=== PATIENT | male | born 1970 | race Caucasian/White ===

== ENCOUNTER 2020-05-28 16:38 | Emergency (ER) | payer MEDICAID, OTHER ==
[~2020-05-28] VITALS: Ht 180.3 cm; Wt 109.8 kg
[2020-05-28 17:17] VITALS: BP 142/83
== END 2020-05-28 17:22 | disposition left against medical advice (07) ==
LOC: ER 16:38
DX: Z48.00 Encounter for change or removal of nonsurgical wound dressing (principal); Z53.21 Procedure and treatment not carried out due to patient leaving prior to being seen by health care provider

== ENCOUNTER 2023-04-15 13:25 | Inpatient (IN) | payer MEDICAID ==
[~2023-04-15] VITALS: Ht 180.3 cm; Wt 104.7 kg
[2023-04-15 16:13] LABS: Basophils # (auto) 0.1 10 ^3/uL (0-0.2); Basophils % (auto) 0.8 % (0.0-2.0); Eosinophils # (auto) 0.2 10 ^3/uL (0-0.8); Eosinophils % (auto) 3.2 % (0.0-7.0); Hematocrit 30.3 % (41.0-53.0); Hemoglobin 9.7 g/dL (13.5-17.5); Lymphocytes % (auto) 28.7 % (10.0-50.0); Mean Corpuscular Hemoglobin 24.6 pg (28.0-32.0); Mean Corpuscular Volume 76.9 fL (80.0-100.0); Monocytes # (auto) 0.5 10 ^3/uL (0-1.3); Monocytes % (auto) 7.5 % (0.0-12.0); Neutrophils # (auto) 4.2 10 ^3/uL (1.6-8.6); Neutrophils % (auto) 59.8 % (37.0-80.0); Red Blood Cells 3.94 10^6/uL (4.5-5.90)
[2023-04-15 16:14] LABS: Red Cell Distribution Width 20.1 % (11.8-14.3)
[2023-04-15 16:41] LABS: Albumin 2.6 g/dL (3.4-5.0); Calcium 8.4 mg/dL (8.5-10.1); Potassium 4.1 mmol/L (3.5-5.1)
[2023-04-15 16:44] LABS: BUN/Creatinine Ratio 20.2 (10.0-20.0); Bilirubin, Total 0.2 mg/dL (0.2-1.0); Total Protein 7.7 g/dL (6.4-8.2)
[2023-04-15] MEDS ORDERED: MORPHINE SULFATE 4 MG/ML SYR/VIAL IV ONE (16:45)
[2023-04-15] MEDS ORDERED: VANCOMYCIN PER PHARMACY 0 MG IV SCH (16:45)
[2023-04-15] MEDS ORDERED: oxyCODONE ER 20 MG TAB PO ONE (17:00)
[2023-04-15] MEDS ORDERED: VANCOMYCIN 1GM/250ML 250 ML IV ONE ×2 (17:00)
[2023-04-15] MEDS: ONDANSETRON HCL 4 MG/2 ML VIAL IV ONE ×2 (17:09→17:16)
[2023-04-15] MEDS ORDERED: ACETAMINOPHEN 325 MG TAB PO PRN (20:45)
[2023-04-15] MEDS ORDERED: ONDANSETRON HCL 4 MG/2 ML VIAL IV PRN (20:45)
[2023-04-15] MEDS ORDERED: ATOR20TA50 PO (20:50)
[2023-04-15] MEDS ORDERED: OXYC20TA72 PO (20:50)
[2023-04-15] MEDS ORDERED: QUET1TAB11 PO (20:50)
[2023-04-15] MEDS ORDERED: FENO160T PO (20:50)
[2023-04-15] MEDS ORDERED: PREG200C59 PO (20:50)
[2023-04-15] MEDS ORDERED: DEXTROSE (50%) 50ML SYRG IV PRN (21:00)
[2023-04-15] MEDS ORDERED: PREGABALIN 200 MG PO SCH (22:00)
[2023-04-15] MEDS: ACCU-CHEK COMFORT CURVE STRIP VI SCH (22:00)
[2023-04-15] MEDS: PIPERACILLIN-TAZOB 3.375GM 100 ML IV SCH (22:37)
[2023-04-15] MEDS: SODIUM CHLORIDE 0.9% 1,000 ML IV SCH (22:37)
[2023-04-15] MEDS: PREGABALIN CAPSULE 75 MG CAP PO SCH (22:38)
[2023-04-15] MEDS: PREGABALIN 25 MG CAP PO SCH (22:39)
[2023-04-15] MEDS: oxyCODONE ER 20 MG TAB PO SCH (22:39)
[2023-04-15] MEDS: InsuLIN REG 1unit/0.01ml Soln (100units/ml) SC SCH (22:40)
[2023-04-16] MEDS: VANCOMYCIN 1GM/250ML 250 ML IV SCH ×2 (05:08→17:00)
[2023-04-16] MEDS: PIPERACILLIN-TAZOB 3.375GM 100 ML IV SCH ×3 (06:00→22:00)
[2023-04-16] MEDS: PREGABALIN CAPSULE 75 MG CAP PO SCH ×3 (06:34→22:00)
[2023-04-16] MEDS: oxyCODONE ER 20 MG TAB PO SCH ×4 (06:34→22:01)
[2023-04-16] MEDS: PREGABALIN 25 MG CAP PO SCH ×3 (06:34→22:00)
[2023-04-16] MEDS: InsuLIN REG 1unit/0.01ml Soln (100units/ml) SC SCH ×4 (06:36→22:17)
[2023-04-16] MEDS: ACCU-CHEK COMFORT CURVE STRIP VI SCH ×4 (07:00→22:14)
[2023-04-16 07:40] LABS: Basophils # (auto) 0.1 10 ^3/uL (0-0.2); Eosinophils # (auto) 0.4 10 ^3/uL (0-0.8); Hemoglobin 9.8 g/dL (13.5-17.5); Monocytes # (auto) 0.7 10 ^3/uL (0-1.3); Red Cell Distribution Width 19.8 % (11.8-14.3)
[2023-04-16 07:43] LABS: Basophils % (auto) 0.8 % (0.0-2.0); Eosinophils % (auto) 4.6 % (0.0-7.0); Hematocrit 29.9 % (41.0-53.0); Lymphocytes # (auto) 2.3 10 ^3/uL (0.4-5.4); Lymphocytes % (auto) 25.4 % (10.0-50.0); Mean Corpuscular Hemoglobin 25.3 pg (28.0-32.0); Mean Corpuscular Hgb Conc. 32.6 g/dL (32.0-36.0); Mean Corpuscular Volume 77.5 fL (80.0-100.0); Monocytes % (auto) 7.9 % (0.0-12.0); Neutrophils # (auto) 5.7 10 ^3/uL (1.6-8.6); Neutrophils % (auto) 61.3 % (37.0-80.0); Nucleated Red Blood Cells % 0.1 %; Red Blood Cells 3.87 10^6/uL (4.5-5.90); White Blood Cell 9.2 10^3/uL (4.4-10.8)
[2023-04-16 07:51] LABS: Potassium 4.2 mmol/L (3.5-5.1)
[2023-04-16 08:04] LABS: BUN/Creatinine Ratio 19.7 (10.0-20.0); Bilirubin, Total 0.5 mg/dL (0.2-1.0); Calcium 8.7 mg/dL (8.5-10.1); INR 1.06 (0.9-1.15); Total Protein 8.1 g/dL (6.4-8.2)
[2023-04-16] MEDS: ATORVASTATIN 20 MG TAB PO SCH (10:00)
[2023-04-16] MEDS: Fenofibrate 160MG TAB PO SCH (10:00)
[2023-04-16] MEDS: QUEtiapine FUMARATE 25 MG TAB PO SCH (10:00)
[2023-04-16] MEDS: SODIUM CHLORIDE 0.9% 1,000 ML IV SCH (13:25)
[2023-04-16] MEDS ORDERED: ONDANSETRON HCL 4 MG/2 ML VIAL IV PRN (14:15)
[2023-04-16] MEDS: MORPHINE SULFATE INJ 2 MG/ml SYRG IV PRN ×2 (14:43→23:26)
[2023-04-16 17:00] VITALS: BP 123/70
[2023-04-16 17:50] VITALS: BP 123/70
[2023-04-16 20:00] VITALS: BP 125/78
[2023-04-16 22:00] VITALS: BP 128/81
[2023-04-17] MEDS: MORPHINE SULFATE INJ 2 MG/ml SYRG IV PRN ×3 (04:19→20:31)
[2023-04-17] MEDS: VANCOMYCIN 1GM/250ML 250 ML IV SCH ×2 (05:23→17:43)
[2023-04-17] MEDS: SODIUM CHLORIDE 0.9% 1,000 ML IV SCH ×2 (06:05→22:45)
[2023-04-17] MEDS: PREGABALIN 25 MG CAP PO SCH ×3 (06:19→21:23)
[2023-04-17] MEDS: PREGABALIN CAPSULE 75 MG CAP PO SCH ×3 (06:19→21:23)
[2023-04-17] MEDS: ACCU-CHEK COMFORT CURVE STRIP VI SCH ×4 (06:21→21:27)
[2023-04-17] MEDS: InsuLIN REG 1unit/0.01ml Soln (100units/ml) SC SCH ×4 (06:24→22:38)
[2023-04-17] MEDS: oxyCODONE ER 20 MG TAB PO SCH ×4 (06:27→21:24)
[2023-04-17 08:00] VITALS: BP_SYST 121; BP_SYST 125; BP_DIAS 67; BP_DIAS 78
[2023-04-17] MEDS: Fenofibrate 160MG TAB PO SCH (10:00)
[2023-04-17] MEDS: PIPERACILLIN-TAZOB 3.375GM 100 ML IV SCH ×3 (11:11→21:25)
[2023-04-17] MEDS: ATORVASTATIN 20 MG TAB PO SCH (11:12)
[2023-04-17] MEDS: QUEtiapine FUMARATE 25 MG TAB PO SCH (11:12)
[2023-04-17 12:00] VITALS: BP 122/60
[2023-04-17 16:00] VITALS: BP 103/68
[2023-04-17 20:00] VITALS: BP 125/78
[2023-04-17 22:00] VITALS: BP 130/83
[2023-04-18] VITALS (17 sets, daily range): BP systolic 110–154; BP diastolic 65–94
[2023-04-18] MEDS: MORPHINE SULFATE 4 MG/ML SYR/VIAL IV PRN ×3 (03:28→19:57)
[2023-04-18] MEDS: PREGABALIN 25 MG CAP PO SCH ×3 (05:43→22:15)
[2023-04-18] MEDS: VANCOMYCIN 1GM/250ML 250 ML IV SCH ×2 (05:43→17:46)
[2023-04-18] MEDS: oxyCODONE ER 20 MG TAB PO SCH ×4 (05:44→22:16)
[2023-04-18] MEDS: PREGABALIN CAPSULE 75 MG CAP PO SCH ×3 (05:44→22:15)
[2023-04-18] MEDS: PIPERACILLIN-TAZOB 3.375GM 100 ML IV SCH ×3 (06:00→22:16)
[2023-04-18] MEDS: ACCU-CHEK COMFORT CURVE STRIP VI SCH ×4 (06:34→22:27)
[2023-04-18] MEDS: InsuLIN REG 1unit/0.01ml Soln (100units/ml) SC SCH ×4 (06:34→22:29)
[2023-04-18] MEDS: POVIDONE IODINE 10 % TOPICAL OINT 30GM TOP ONE ×2 (06:45→09:32)
[2023-04-18] MEDS ORDERED: ceFAZolin 1GM/50ML 100 ML IV ONE (07:11)
[2023-04-18] MEDS ORDERED: TETRACAINE 1% INJ 2 ML VIAL IJ ONE (07:46)
[2023-04-18] MEDS ORDERED: fentaNYL CITRATE 100 MCG/2 ML VL ONE (07:52)
[2023-04-18] MEDS ORDERED: MIDAZOLAM HCL 2MG/2ML 2ml VIAL (1mg/ml) ONE ×2 (07:52→09:19)
[2023-04-18] MEDS ORDERED: PROPOFOL 10 MG/ML 20 ML IV ONE (07:54)
[2023-04-18] MEDS ORDERED: DexAMETHasone SOD PHOS 10MG/1ML VIAL INJ ONE (07:54)
[2023-04-18] MEDS ORDERED: PHENYLEPHRINE HCL 10 MG/ML VL IV ONE (07:55)
[2023-04-18] MEDS ORDERED: MORPHINE SULF PF 5 MG/10 ML VIAL ONE (07:57)
[2023-04-18] MEDS ORDERED: DexAMETHasone SOD PHOS 10MG/1ML VIAL INJ IV PRN (09:00)
[2023-04-18] MEDS ORDERED: ePHEDrine SULFATE 50 MG/ML AMP IV PRN (09:00)
[2023-04-18] MEDS ORDERED: HYDROmorphone HCL 2 MG/ML VL/or syr IV PRN (09:00)
[2023-04-18] MEDS ORDERED: LABETALOL HCL 5 MG/ML 4ML SYRINGE IV PRN (09:00)
[2023-04-18] MEDS ORDERED: MIDAZOLAM HCL 2MG/2ML 2ml VIAL (1mg/ml) IV PRN (09:00)
[2023-04-18] MEDS ORDERED: NALOXONE HCL 0.4 MG/ML VIAL IV PRN (09:00)
[2023-04-18] MEDS ORDERED: ONDANSETRON HCL 4 MG/2 ML VIAL IV PRN ×2 (09:00)
[2023-04-18] MEDS: Fenofibrate 160MG TAB PO SCH (10:00)
[2023-04-18] MEDS: QUEtiapine FUMARATE 25 MG TAB PO SCH ×2 (10:00→22:16)
[2023-04-18] MEDS: ATORVASTATIN 20 MG TAB PO SCH (10:00)
[2023-04-18] MEDS: SODIUM CHLORIDE 0.9% 1,000 ML IV SCH (15:08)
[2023-04-18 19:49] LABS: BUN/Creatinine Ratio 15.5 (10.0-20.0); Calcium 8.1 mg/dL (8.5-10.1); Potassium 4.9 mmol/L (3.5-5.1)
[2023-04-18] MEDS ORDERED: DEXTROSE (50%) 50ML SYRG IV PRN (20:45)
[2023-04-19] VITALS (11 sets, daily range): BP systolic 111–159; BP diastolic 51–87
[2023-04-19] MEDS: MORPHINE SULFATE 4 MG/ML SYR/VIAL IV PRN ×2 (00:13→04:07)
[2023-04-19] MEDS: PREGABALIN 25 MG CAP PO SCH ×3 (05:11→21:02)
[2023-04-19] MEDS: oxyCODONE ER 20 MG TAB PO SCH ×4 (05:11→23:00)
[2023-04-19] MEDS: PREGABALIN CAPSULE 75 MG CAP PO SCH ×3 (05:12→21:02)
[2023-04-19] MEDS: PIPERACILLIN-TAZOB 3.375GM 100 ML IV SCH (05:14)
[2023-04-19] MEDS: ACCU-CHEK COMFORT CURVE STRIP VI SCH ×4 (06:16→21:14)
[2023-04-19] MEDS: InsuLIN REG 1unit/0.01ml Soln (100units/ml) SC SCH ×4 (06:17→22:35)
[2023-04-19] MEDS: SODIUM CHLORIDE 0.9% 1,000 ML IV SCH (08:05)
[2023-04-19] MEDS: ATORVASTATIN 20 MG TAB PO SCH (08:57)
[2023-04-19] MEDS: Fenofibrate 160MG TAB PO SCH (08:58)
[2023-04-19] MEDS: MORPHINE SULFATE INJ 2 MG/ml SYRG IV PRN ×4 (08:58→21:06)
[2023-04-19] MEDS: VANCOMYCIN 1GM/250ML 250 ML IV SCH ×2 (09:16→17:20)
[2023-04-19] MEDS: DOCUSATE SOD 100 MG CAP PO PRN (21:18)
[2023-04-19] MEDS: INSULIN LANTUS (GLARGINE) 1 /0.01ml (100units/ml) SC SCH (22:37)
[2023-04-19] MEDS: QUEtiapine FUMARATE 25 MG TAB PO SCH (23:00)
[2023-04-20] MEDS: MORPHINE SULFATE INJ 2 MG/ml SYRG IV PRN ×6 (01:11→21:00)
[2023-04-20] MEDS: VANCOMYCIN 1GM/250ML 250 ML IV SCH ×2 (04:59→17:17)
[2023-04-20 06:00] VITALS: BP 113/65
[2023-04-20 06:02] LABS: Basophils # (auto) 0.1 10 ^3/uL (0-0.2); Basophils % (auto) 0.9 % (0.0-2.0); Eosinophils # (auto) 0.2 10 ^3/uL (0-0.8); Hemoglobin 9.4 g/dL (13.5-17.5); Red Blood Cells 3.72 10^6/uL (4.5-5.90)
[2023-04-20 06:04] LABS: Eosinophils % (auto) 2.5 % (0.0-7.0); Hematocrit 28.9 % (41.0-53.0); Lymphocytes # (auto) 2.5 10 ^3/uL (0.4-5.4); Lymphocytes % (auto) 38.4 % (10.0-50.0); Mean Corpuscular Hemoglobin 25.4 pg (28.0-32.0); Mean Corpuscular Hgb Conc. 32.6 g/dL (32.0-36.0); Mean Corpuscular Volume 77.8 fL (80.0-100.0); Monocytes # (auto) 0.6 10 ^3/uL (0-1.3); Monocytes % (auto) 9.7 % (0.0-12.0); Neutrophils # (auto) 3.2 10 ^3/uL (1.6-8.6); Neutrophils % (auto) 48.5 % (37.0-80.0); Nucleated Red Blood Cells % 0.1 %; Red Cell Distribution Width 19.8 % (11.8-14.3); White Blood Cell 6.6 10^3/uL (4.4-10.8)
[2023-04-20] MEDS: PREGABALIN CAPSULE 75 MG CAP PO SCH ×3 (06:06→21:22)
[2023-04-20] MEDS: PREGABALIN 25 MG CAP PO SCH ×3 (06:06→21:22)
[2023-04-20] MEDS: oxyCODONE ER 20 MG TAB PO SCH ×4 (06:07→21:22)
[2023-04-20 06:08] LABS: BUN/Creatinine Ratio 15.8 (10.0-20.0); Potassium 4.7 mmol/L (3.5-5.1)
[2023-04-20] MEDS: ACCU-CHEK COMFORT CURVE STRIP VI SCH ×4 (06:08→22:00)
[2023-04-20] MEDS: DOCUSATE SOD 100 MG CAP PO PRN (06:14)
[2023-04-20] MEDS: INSULIN LANTUS (GLARGINE) 1 /0.01ml (100units/ml) SC SCH ×2 (06:40→21:23)
[2023-04-20] MEDS: InsuLIN REG 1unit/0.01ml Soln (100units/ml) SC SCH ×4 (06:41→21:23)
[2023-04-20 09:00] VITALS: BP 148/70
[2023-04-20] MEDS: cefTRIAXone 1GM/50ML D5W 50 ML IV SCH (09:39)
[2023-04-20] MEDS: Fenofibrate 160MG TAB PO SCH (10:00)
[2023-04-20] MEDS: ATORVASTATIN 20 MG TAB PO SCH (10:38)
[2023-04-20 13:00] VITALS: BP 132/73
[2023-04-20 17:00] VITALS: BP 129/69
[2023-04-20] MEDS: QUEtiapine FUMARATE 25 MG TAB PO SCH (23:46)
[2023-04-21] MEDS: MORPHINE SULFATE INJ 2 MG/ml SYRG IV PRN ×6 (00:43→22:55)
[2023-04-21] MEDS: VANCOMYCIN 1GM/250ML 250 ML IV SCH ×2 (05:00→17:49)
[2023-04-21] MEDS: PREGABALIN 25 MG CAP PO SCH ×3 (06:21→22:02)
[2023-04-21] MEDS: PREGABALIN CAPSULE 75 MG CAP PO SCH ×3 (06:22→22:02)
[2023-04-21] MEDS: oxyCODONE ER 20 MG TAB PO SCH ×3 (06:22→19:06)
[2023-04-21] MEDS: InsuLIN REG 1unit/0.01ml Soln (100units/ml) SC SCH ×4 (06:26→22:04)
[2023-04-21] MEDS: INSULIN LANTUS (GLARGINE) 1 /0.01ml (100units/ml) SC SCH ×2 (06:27→22:03)
[2023-04-21] MEDS: ACCU-CHEK COMFORT CURVE STRIP VI SCH ×4 (06:42→22:02)
[2023-04-21 09:00] VITALS: BP 116/56
[2023-04-21] MEDS: ATORVASTATIN 20 MG TAB PO SCH (09:23)
[2023-04-21] MEDS: cefTRIAXone 1GM/50ML D5W 50 ML IV SCH (09:23)
[2023-04-21] MEDS: Fenofibrate 160MG TAB PO SCH (09:24)
[2023-04-21 13:00] VITALS: BP 120/66
[2023-04-21 15:17] VITALS: BP 120/66
[2023-04-21 17:00] VITALS: BP 113/65
[2023-04-21 22:00] VITALS: BP 141/68
[2023-04-21] MEDS: QUEtiapine FUMARATE 25 MG TAB PO SCH (22:02)
[2023-04-22] MEDS: oxyCODONE ER 20 MG TAB PO SCH ×3 (00:02→12:23)
[2023-04-22] MEDS: VANCOMYCIN 1GM/250ML 250 ML IV SCH (04:59)
[2023-04-22] MEDS: PREGABALIN CAPSULE 75 MG CAP PO SCH ×2 (05:50→14:00)
[2023-04-22] MEDS: PREGABALIN 25 MG CAP PO SCH ×2 (05:50→14:00)
[2023-04-22] MEDS: ACCU-CHEK COMFORT CURVE STRIP VI SCH ×2 (07:04→12:26)
[2023-04-22] MEDS: InsuLIN REG 1unit/0.01ml Soln (100units/ml) SC SCH ×2 (07:05→12:33)
[2023-04-22] MEDS: INSULIN LANTUS (GLARGINE) 1 /0.01ml (100units/ml) SC SCH (07:10)
[2023-04-22 09:00] VITALS: BP_SYST 108; BP_SYST 137; BP_DIAS 60; BP_DIAS 66
[2023-04-22] MEDS: cefTRIAXone 1GM/50ML D5W 50 ML IV SCH (09:33)
[2023-04-22] MEDS: ATORVASTATIN 20 MG TAB PO SCH (09:34)
[2023-04-22] MEDS: Fenofibrate 160MG TAB PO SCH (10:00)
[2023-04-22] MEDS: MORPHINE SULFATE INJ 2 MG/ml SYRG IV PRN (10:15)
[2023-04-22 10:45] VITALS: BP 108/60
== END 2023-04-22 15:20 | disposition home health service (06) | DRG 792 ==
LOC: ER 13:25 → EDBD 13:25 → OVERFLOW 20:50 → CENTRAL 04-16 18:00 → TELE-CENTR 04-18 09:24 → CENTRAL 04-19 15:51
PROVIDERS: ADMIT Nurse Practitioner Family; ATTEND Internal Medicine
PROC: 0Y6H0Z1 Detachment at Right Lower Leg, High, Open Approach (ICD-10-PCS; principal; 2023-04-18 07:59)
PROC: 02PYX3Z Removal of Infusion Device from Great Vessel, External Approach (ICD-10-PCS; 2023-04-22)
DX: T81.89XA Other complications of procedures, not elsewhere classified, initial encounter (principal); A52.16 Charcot's arthropathy (tabetic); M86.171 Other acute osteomyelitis, right ankle and foot; N17.9 Acute kidney failure, unspecified; E11.42 Type 2 diabetes mellitus with diabetic polyneuropathy; E11.610 Type 2 diabetes mellitus with diabetic neuropathic arthropathy; L97.429 Non-pressure chronic ulcer of left heel and midfoot with unspecified severity; M86.671 Other chronic osteomyelitis, right ankle and foot; E11.621 Type 2 diabetes mellitus with foot ulcer; E11.69 Type 2 diabetes mellitus with other specified complication; F32.A Depression, unspecified; I10 Essential (primary) hypertension; E11.65 Type 2 diabetes mellitus with hyperglycemia; Z91.199 Patient's noncompliance with other medical treatment and regimen due to unspecified reason; Z87.891 Personal history of nicotine dependence; Z83.3 Family history of diabetes mellitus; Z81.8 Family history of other mental and behavioral disorders; Z80.9 Family history of malignant neoplasm, unspecified; Z82.49 Family history of ischemic heart disease and other diseases of the circulatory system; Z79.4 Long term (current) use of insulin
CPT/HCPCS: 36415; 71045; 73700; 80048; 80053; 80202; 82962; 83036; 83605; 85025; 85610; 85652; 85730; 87040; 87081; 93971; 94760; 97163; G0378; J0690; J0696; J1100; J1815; J2250; J2405; J2543; J2704

== ENCOUNTER 2023-05-02 13:53 | Emergency (ER) | payer MEDICAID ==
[~2023-05-02] VITALS: Ht 180.3 cm; Wt 109.0 kg
[~2023-05-02 13:53] MED LIST: ATOR20TA50 PO; FENO160T PO; OXYC20TA72 PO; PREG200C59 PO; QUET1TAB11 PO
[2023-05-02 14:05] VITALS: BP 141/81
== END 2023-05-02 15:33 | disposition home or self-care (01) ==
LOC: ER 13:53
DX: S31.010D Laceration without foreign body of lower back and pelvis without penetration into retroperitoneum, subsequent encounter (principal); L08.9 Local infection of the skin and subcutaneous tissue, unspecified; E11.9 Type 2 diabetes mellitus without complications; I10 Essential (primary) hypertension; W18.39XD Other fall on same level, subsequent encounter
CPT/HCPCS: 12001; 82962

== ENCOUNTER 2023-09-18 10:40 | Emergency (ER) | payer MEDICAID ==
[~2023-09-18] VITALS: Ht 180.3 cm; Wt 104.0 kg
[2023-09-18 10:55] VITALS: BP 105/65; PULSE 90; RESP 18; TEMP 97.5; O2SAT 99
[2023-09-18] MEDS ORDERED: cefTRIAXone SOD 1,000 MG VL IM ONE (12:15)
[2023-09-18] MEDS ORDERED: HYDROcodone-ACET 10/325MG TAB PO ONE (12:15)
[2023-09-18] MEDS ORDERED: CEPH500C PO (12:15)
[2023-09-18] MEDS ORDERED: HYDROcodone-ACET 5/325MG TAB PO ONE (12:30)
== END 2023-09-18 12:30 | disposition home or self-care (01) ==
LOC: ER 10:40
DX: S80.01XA Contusion of right knee, initial encounter (principal); E11.9 Type 2 diabetes mellitus without complications; I10 Essential (primary) hypertension; Z48.00 Encounter for change or removal of nonsurgical wound dressing; X58.XXXA Exposure to other specified factors, initial encounter; Y93.89 Activity, other specified; Y92.89 Other specified places as the place of occurrence of the external cause; Y99.8 Other external cause status
CPT/HCPCS: 96372; 99283; J0696

== ENCOUNTER 2023-09-20 10:16 | Emergency (ER) | payer MEDICAID ==
[~2023-09-20] VITALS: Ht 180.3 cm; Wt 104.0 kg
[~2023-09-20 10:16] MED LIST changes: +CEPH500C PO
[2023-09-20 11:36] VITALS: BP 106/68; PULSE 76; RESP 18; TEMP 98.7; O2SAT 99
== END 2023-09-20 11:47 | disposition home or self-care (01) ==
LOC: ER 10:16
DX: E11.9 Type 2 diabetes mellitus without complications (principal); I10 Essential (primary) hypertension; Z48.00 Encounter for change or removal of nonsurgical wound dressing

== ENCOUNTER 2024-05-26 08:04 | Inpatient (IN) | payer MEDICAID ==
[~2024-05-26] VITALS: Ht 175.3 cm; Wt 121.7 kg
[~2024-05-26 08:04] MED LIST changes: +PREG200C36 PO; -PREG200C59 PO
[2024-05-26 09:30] LABS: Basophils # (auto) 0 10 ^3/uL (0-0.2); Basophils % (auto) 0.3 % (0.0-2.0); Eosinophils # (auto) 0.2 10 ^3/uL (0-0.8); Eosinophils % (auto) 1.8 % (0.0-7.0); Hematocrit 41.7 % (41.0-53.0); Hemoglobin 13.7 g/dL (13.5-17.5); Lymphocytes # (auto) 1.2 10 ^3/uL (0.4-5.4); Lymphocytes % (auto) 10.9 % (10.0-50.0); Mean Corpuscular Hemoglobin 30.5 pg (28.0-32.0); Mean Corpuscular Hgb Conc. 32.9 g/dL (32.0-36.0); Mean Corpuscular Volume 92.7 fL (80.0-100.0); Monocytes # (auto) 0.9 10 ^3/uL (0-1.3); Monocytes % (auto) 8.3 % (0.0-12.0); Neutrophils # (auto) 8.6 10 ^3/uL (1.6-8.6); Neutrophils % (auto) 78.7 % (37.0-80.0); Nucleated Red Blood Cells % 0.1 %; Red Blood Cells 4.49 10^6/uL (4.5-5.90); Red Cell Distribution Width 16.2 % (11.8-14.3); White Blood Cell 10.9 10^3/uL (4.4-10.8)
[2024-05-26 09:47] LABS: Alanine Aminotransferase 19 U/L (7-40); Albumin 4.1 g/dL (3.2-4.8); Alkaline Phosphatase 87 U/L (46-116); Anion Gap 9 (5-15); Aspartate Aminotransferase 9 U/L (13-40); BUN/Creatinine Ratio 15.7 (10.0-20.0); Blood Urea Nitrogen 20 mg/dL (9-23); Calcium 9.5 mg/dL (8.7-10.4); Carbon Dioxide 16 mmol/L (20-30); Chloride 110 mmol/L (98-107); Glucose 170 mg/dL (74-106); Potassium 5.1 mmol/L (3.5-5.1); Sodium 135 mmol/L (136-145)
[2024-05-26 09:48] LABS: Bilirubin, Total 0.3 mg/dL (0.2-1.0); Total Protein 7.3 g/dL (5.7-8.2)
[2024-05-26] MEDS: HYDROcodone-ACET 5/325MG TAB PO ONE (13:07)
[2024-05-26 14:20] VITALS: PULSE 85; RESP 17; O2SAT 94
[2024-05-26] MEDS: VANCOMYCIN 1GM/200ML 200 ML IV ONE (14:40)
[2024-05-26] MEDS ORDERED: DEXTROSE (50%) 50ML SYRG IV PRN (16:30)
[2024-05-26] MEDS ORDERED: HYDROcodone-ACET 5/325MG TAB PO PRN (16:30)
[2024-05-26] MEDS ORDERED: NITROGLYCERIN 0.4 MG SL TAB SL PRN (16:30)
[2024-05-26] MEDS: cefTRIAXone 1GM/50ML D5W 50 ML IV SCH (16:41)
[2024-05-26] MEDS: InsuLIN REG 1unit/0.01ml Soln (100units/ml) SC SCH (17:00)
[2024-05-26 18:49] LABS: Amphetamine Screen, Urine Neg (NEGATIVE)
[2024-05-26 18:50] LABS: Barbiturate Scree,Urine Neg (NEGATIVE); Benzodiazephine Screen, Urine Neg (NEGATIVE); Cannabinoid Screen, Urine Neg (NEGATIVE); Cocaine Screen, Urine Neg (NEGATIVE); Opiate Scree,Urine Neg (NEGATIVE); Phencyclidine Screen, Urine Neg (NEGATIVE)
[2024-05-26] MEDS: ACCU-CHEK COMFORT CURVE STRIP VI SCH (18:59)
[2024-05-26] MEDS: FUROSEMIDE 20 MG/2 ML VIAL IV SCH (19:00)
[2024-05-26] MEDS ORDERED: HYDROcodone-ACET 10/325MG TAB PO PRN ×2 (19:15→19:30)
[2024-05-26] MEDS: PREGABALIN 25 MG CAP PO SCH (22:00)
[2024-05-26] MEDS: SENNA 8.6 MG TAB PO SCH (22:00)
[2024-05-26] MEDS: ONDANSETRON HCL 4 MG/2 ML VIAL IV PRN (23:02)
[2024-05-26] MEDS: MORPHINE SULFATE INJ 2 MG/ml SYRG IV PRN (23:03)
[2024-05-26] MEDS: PREGABALIN CAPSULE 75 MG CAP PO SCH (23:04)
[2024-05-26] MEDS: oxyCODONE HCL 5MG TAB PO PRN (23:22)
[2024-05-27] VITALS (10 sets, daily range): BP systolic 107–146; BP diastolic 65–82; PULSE 63–91; RESP 16–20; TEMP 98–99.1; O2SAT 92–100
[2024-05-27] MEDS: MORPHINE SULFATE INJ 2 MG/ml SYRG IV PRN (05:12)
[2024-05-27 10:21] LABS: Chloride 106 mmol/L (98-107); Potassium 4.7 mmol/L (3.5-5.1); Sodium 133 mmol/L (136-145)
[2024-05-27 10:22] LABS: Anion Gap 8 (5-15); Carbon Dioxide 19 mmol/L (20-30)
[2024-05-27 10:24] LABS: Basophils # (auto) 0 10 ^3/uL (0-0.2); Basophils % (auto) 0.3 % (0.0-2.0); Eosinophils # (auto) 0.2 10 ^3/uL (0-0.8); Eosinophils % (auto) 1.9 % (0.0-7.0); Hematocrit 36.3 % (41.0-53.0); Hemoglobin 12.2 g/dL (13.5-17.5); Lymphocytes # (auto) 1.3 10 ^3/uL (0.4-5.4); Lymphocytes % (auto) 11.9 % (10.0-50.0); Mean Corpuscular Hemoglobin 30.6 pg (28.0-32.0); Mean Corpuscular Hgb Conc. 33.7 g/dL (32.0-36.0); Mean Corpuscular Volume 90.7 fL (80.0-100.0); Monocytes # (auto) 0.9 10 ^3/uL (0-1.3); Monocytes % (auto) 8.9 % (0.0-12.0); Neutrophils # (auto) 8.1 10 ^3/uL (1.6-8.6); Red Cell Distribution Width 15.9 % (11.8-14.3); White Blood Cell 10.6 10^3/uL (4.4-10.8)
[2024-05-27 10:27] LABS: Glucose 193 mg/dL (74-106)
[2024-05-27 10:38] LABS: Blood Urea Nitrogen 31 mg/dL (9-23)
[2024-05-27 10:39] LABS: INR 1.1 (0.9-1.15); Partial Thromboplastin Time 30.7 SEC (24.5-34.5); Prothrombin Time 11.6 sec (9.3-11.8)
[2024-05-28] VITALS (7 sets, daily range): BP systolic 128–157; BP diastolic 70–92; PULSE 56–98; RESP 16–20; TEMP 97.4–98.7; O2SAT 94–100
[2024-05-28] MEDS ORDERED: CEFD300C2 PO (12:34)
[2024-05-28] MEDS ORDERED: BUME2TAB5 PO (12:34)
[2024-05-28] MEDS ORDERED: ASPI81TA28 PO (12:35)
== END 2024-05-28 15:24 | disposition home or self-care (01) | DRG 383 ==
LOC: ER 08:10 → OVERFLOW 16:27 → WEST WING 23:50
PROVIDERS: ADMIT Hospitalist; ATTEND Hospitalist
DX: L03.116 Cellulitis of left lower limb (principal); S81.002A Unspecified open wound, left knee, initial encounter; E11.65 Type 2 diabetes mellitus with hyperglycemia; I10 Essential (primary) hypertension; F41.9 Anxiety disorder, unspecified; F17.210 Nicotine dependence, cigarettes, uncomplicated; Z89.511 Acquired absence of right leg below knee; Z79.84 Long term (current) use of oral hypoglycemic drugs; Z81.8 Family history of other mental and behavioral disorders; Z83.3 Family history of diabetes mellitus; Z80.9 Family history of malignant neoplasm, unspecified; Z82.49 Family history of ischemic heart disease and other diseases of the circulatory system; X58.XXXA Exposure to other specified factors, initial encounter; Y93.89 Activity, other specified; Y92.009 Unspecified place in unspecified non-institutional (private) residence as the place of occurrence of the external cause; Y99.9 Unspecified external cause status
CPT/HCPCS: 36415; 71046; 73700; 80048; 80053; 80307; 82962; 83036; 85025; 85610; 85730; 87040; 87077; 87186; 87205; 93926; 93971; 96365; 96375; G0378; J1815; J2405